=== PATIENT | female | born 1995 | race Caucasian/White ===

== ENCOUNTER 2016-06-10 17:14 | Emergency (ER) | payer OTHER ==
[2016-06-10 17:24] VITALS: BP 119/74
--- NOTE | 2016-06-10 17:40 | UC ---
Ear Complaint HPI - HPI Summary HPI Summary: ear pain on/off for 1 week - History of Current Complaint Chief Complaint: UC Stated Complaint: EAR PAIN Time Seen by Provider: 06/10/16 17:24 Hx Obtained From: Patient Hx Last Menstrual Period: 05/08/16 ?: No Onset/Duration: Gradual Onset, Lasting Days, Still Present, Worse Since - past 2 days Severity Initially: Mild Severity Currently: Moderate Pain Intensity: 6 Pain Scale Used: 0-10 Numeric Aggravating Factors: Nothing Alleviating Factors: Nothing Associated Signs/Symptoms: Positive: URI Symptoms - Allergies/Home Medications Allergies/Adverse Reactions: Allergies Allergy/AdvReac Type Severity Reaction Status Date / Time No Known Allergies Allergy Verified 06/10/16 17:17 PMH/Surg Hx/FS Hx/Imm Hx Previously Healthy: Yes Endocrine History Of: Denies: Diabetes Cardiovascular History Of: Denies: Hypertension, Pacemaker/ICD, Congestive Heart Failure GI/ History Of: Denies: Renal Disease - Surgical History Surgical History: None Surgery Procedure, Year, and Place: EPISODIC DYSRHYTHMIA - on betablocker, hypotension, esophageal spasms, OCD - Family History Known Family History: Positive: None Family History: no known cardiovascular issues in family - Social History Occupation: Unemployed Lives: With Family Alcohol Use: None Substance Use Type: None Smoking Status (MU): Never Smoked Tobacco Review of Systems Constitutional: Negative Skin: Negative Eyes: Negative ENT: Ear Ache - right Respiratory: Negative Cardiovascular: Negative Gastrointestinal: Negative Genitourinary: Negative Motor: Negative Neurovascular: Negative Musculoskeletal: Negative Neurological: Negative Psychological: Negative All Other Systems Reviewed And Are Negative: Yes Physical Exam Triage Information Reviewed: Yes Appearance: Well-Appearing, No Pain Distress, Well-Nourished Vital Signs: Initial Vital Signs Temp 98 F 06/10/16 17:19 Pulse 73 06/10/16 17:19 Resp 18 06/10/16 17:19 BP 119/74 06/10/16 17:19 Pulse Ox 98 06/10/16 17:19 Vital Signs Reviewed: Yes Eye Exam: Normal Eyes: Positive: Conjunctiva Clear ENT Exam: Normal ENT: Positive: Normal ENT inspection, Hearing grossly normal, Pharynx normal, TMs normal - left, TM bulging - right, TM red - right. Negative: Nasal congestion, Nasal drainage, Tonsillar swelling, Tonsillar exudate, Trismus, Muffled/hoarse voice Dental Exam: Normal Neck exam: Normal Neck: Positive: Supple, Nontender, No Lymphadenopathy Respiratory Exam: Normal Respiratory: Positive: Chest non-tender, Lungs clear, Normal breath sounds, No respiratory distress, No accessory muscle use Cardiovascular Exam: Normal Cardiovascular: Positive: RRR, No Murmur, Pulses Normal, Brisk Capillary Refill Musculoskeletal Exam: Normal Musculoskeletal: Positive: Strength Intact, ROM Intact, No Edema Neurological Exam: Normal Neurological: Positive: Alert Psychological Exam: Normal Skin Exam: Normal Ear Complaint Course/Dx - Course Course Of Treatment: amoxicillin, ibuprofen, tylenol follow with PCP - Differential Dx/Diagnosis Differential Diagnosis/HQI/PQRI: Cellulitis, Foreign Body, Otitis Externa, Otitis Media, Trigeminal Nueralgia, URI Provider Diagnoses: Right Otitis Media Discharge - Discharge Plan Condition: Stable Disposition: HOME Prescriptions: Amoxicillin/Clavulanate TAB* [Augmentin TAB 875*] 875 mg PO BID #20 tab Patient Education Materials: Otitis Media (ED) Referrals: Julee Garcia MD [Primary Care Provider] - If Needed
== END 2016-06-10 17:35 | disposition home or self-care (01) ==
LOC: UCEAST 17:14
DX: H66.91 Otitis media, unspecified, right ear (principal)
CPT/HCPCS: 99212; G0463